=== PATIENT | female | born 1945 | race Caucasian/White ===

== ENCOUNTER 2017-05-31 20:47 | Emergency (ER) | payer MEDICARE, OTHER ==
--- NOTE | 2017-05-31 20:56 | ED Physician Documentation ---
PD HPI DYSPNEA - Stated complaint Stated Complaint: SOA/CRACKLY LUNGS - History obtained from History obtained from: Patient - History of Present Illness Timing - onset: How many weeks ago (3) Timing - duration: Weeks Timing - details: Gradual onset, Waxing and waning Pain level max: 0 Pain level now: 0 Improved by: Rest Worsened by: Exertion, Laying flat Similar symptoms before: Diagnosis (some symptoms are similar to previous episodes of asthma exacerbation, but she is not confident that all of her symptoms are c/w previous such episodes) Recently seen: Not recently seen - Additional information Additional information: c/o 3 weeks of dyspnea, cough productive of clear "fluid" (per patient), becoming worse x 1 week. Denies fever, chills, diaphoresis. Review of Systems Constitutional: denies: Fever, Chills, Sweats Nose: reports: Congestion Throat: denies: Sore throat Cardiac: reports: Reviewed and negative Respiratory: reports: Dyspnea, Cough GI: denies: Abdominal Pain, Nausea, Vomiting Musculoskeletal: denies: Extremity swelling PD PAST MEDICAL HISTORY - Past Medical History Cardiovascular: None Respiratory: Asthma Neuro: None Endocrine/Autoimmune: None GI: GERD HEENT: Glaucoma Psych: Anxiety Musculoskeletal: Osteoarthritis, Osteoporosis - Past Surgical History Past Surgical History: Yes HEENT: Tonsil/Adenoidectomy - Present Medications Home Medications: Ambulatory Orders Medication Instructions Recorded Confirmed ALPRAZolam [Xanax] 0.25 mg PO HS 04/21/13 05/31/17 Levalbuterol [Xopenex] 1.25 mg INH TID PRN 04/21/13 05/31/17 Clindamycin [Cleocin] 300 mg PO BID 05/31/17 05/31/17 PrednisoLONE [Prelone] 20 mg PO DAILY 3 Days 05/31/17 - Allergies Allergies/Adverse Reactions: Allergies Allergy/AdvReac Type Severity Reaction Status Date / Time cephalexin monohydrate * Allergy Unknown unknown Verified 05/31/17 20:56 [From Keflex] erythromycin base Allergy unknown Verified 05/31/17 20:56 [Erythromycin Base] omeprazole [From Prilosec] Allergy swelling Verified 05/31/17 20:56 omeprazole magnesium * Allergy swelling Verified 05/31/17 20:56 [From Prilosec] Penicillins Allergy unknown Verified 05/31/17 20:56 Sulfa (Sulfonamide Allergy unknown Verified 05/31/17 20:56 Antibiotics) Tetracyclines Allergy unknown Verified 05/31/17 20:56 - Social History Does the pt smoke?: No Smoking Status: Never smoker Does the pt drink ETOH?: No Does the pt have substance abuse?: No - POLST Patient has POLST: No PD ED PE NORMAL - Vitals Vital signs reviewed: Yes - General General: Alert and oriented X 3, No acute distress, Well developed/nourished - Cardiac Cardiac: RRR, No murmur, No gallop, No rub - Respiratory Respiratory: No respiratory distress, Other (decreased breath sounds bilaterally ) - Abdomen Abdomen: Soft, Non tender - Derm Derm: Normal color, Warm and dry - Extremities Extremities: No edema Results - Vitals Vitals: Vital Signs - 24 hr 05/31/17 05/31/17 05/31/17 20:52 22:57 23:29 Temperature 36.5 C 36.5 C Heart Rate 72 58 L 88 Respiratory 20 16 16 Rate Blood Pressure 150/76 H 127/82 H 121/78 O2 Saturation 93 93 95 Oxygen O2 Source Room air - EKG (time done) No standard instances Rate: Rate (enter#) (58) Rhythm: NSR [place]: Normal Intervals: Normal [place] QRS: Normal Ischemia: Normal ST segments, Q waves (V1, V2) - Labs Labs: Laboratory Tests 05/31/17 05/31/17 05/31/17 21:14 21:14 21:14 WBC 8.6 RBC 4.81 Hgb 13.8 Hct 40.8 MCV 84.9 MCH 28.7 MCHC 33.8 RDW 13.1 Plt Count 271 MPV 6.9 L Neut # 5.6 Lymph # 1.8 [place] # 0.6 Eos # 0.5 Baso # 0.1 Absolute Nucleated RBC 0.00 Nucleated RBCs 0.0 Sodium 139 Potassium 3.9 Chloride 105 Carbon Dioxide 25 Anion Gap 9.0 BUN 18 Creatinine 0.9 Estimated GFR (MDRD) 62 L Glucose 95 Calcium 9.2 Troponin I < 0.04 B-Natriuretic Peptide 05/31/17 21:14 WBC RBC Hgb Hct MCV MCH MCHC RDW Plt Count MPV Neut # Lymph # [place] # Eos # Baso # Absolute Nucleated RBC Nucleated RBCs Sodium Potassium Chloride Carbon Dioxide Anion Gap BUN Creatinine Estimated GFR (MDRD) Glucose Calcium Troponin I B-Natriuretic Peptide 48 - Rads (name of study) chest xray Radiology: Prelim report reviewed, See rad report PD MEDICAL DECISION MAKING - ED course Complexity details: reviewed old records, reviewed results, re-evaluated patient , considered differential, d/w patient ED course: Patient agrees with steroid (in ED and rx), but insists on reduced doses due to concern for side effects. Departure - Departure Disposition: Home, Self Care Clinical Impression: Dyspnea Qualifiers: Dyspnea type: unspecified Qualified Code(s): R06.00 - Dyspnea, unspecified Condition: Good Instructions: ED Reactive Airway Disease Follow-Up: Mayte Dennis MD [Primary Care Provider] - Within 3 Days Prescriptions: PrednisoLONE [Prelone] 20 mg PO DAILY 3 Days Discharge Date/Time: 05/31/17 23:30
[2017-05-31 21:41] LABS: BASOPHILS # (AUTO) 0.1 10^3/uL (0.0-0.1); EOSINOPHILS # (AUTO) 0.5 10^3/uL (0.0-0.7); EOSINOPHILS % (AUTO) 5.5 %; HCT - HEMATOCRIT 40.8 % (37.0-47.0); HGB - HEMOGLOBIN 13.8 g/dL (12.0-16.0); LYMPHOCYTES # (AUTO) 1.8 10^3/uL (1.5-3.5); LYMPHOCYTES % (AUTO) 21.2 %; MEAN CORPUSCULAR HEMOGLOBIN 28.7 pg (27.0-31.0); MEAN CORPUSCULAR HGB CONC 33.8 g/dL (32.0-36.0); MEAN CORPUSCULAR VOLUME 84.9 fL (81.0-99.0); MEAN PLATELET VOLUME 6.9 fL (7.9-10.8); MONOCYTES # (AUTO) 0.6 10^3/uL (0.0-1.0); MONOCYTES % (AUTO) 6.7 %; NEUTROPHILS # (AUTO) 5.6 10^3/uL (1.5-6.6); NEUTROPHILS % (AUTO) 65.6 %; RED BLOOD COUNT 4.81 10^6/uL (4.20-5.40); RED CELL DISTRIBUTION WIDTH 13.1 % (12.0-15.0); UNCORRECTED WHITE BLOOD COUNT 8.6 x10^3/uL; WHITE BLOOD COUNT 8.6 x10^3/uL (4.8-10.8)
[2017-05-31 21:46] LABS: CALCIUM 9.2 mg/dL (8.5-10.3); CREATININE 0.9 mg/dL (0.4-1.0); POTASSIUM 3.9 mmol/L (3.5-5.0)
--- NOTE | 2017-05-31 22:18 | XRAY Preliminary Report ---
Exam: XR Chest 2 View PA/LAT IMPRESSION: 1. Large lung volumes consistent with emphysema. [facility] SITE ID: [id number]
--- NOTE | 2017-05-31 22:21 | XRAY Report ---
EXAM: CHEST RADIOGRAPHY EXAM DATE: 05/31/2017 10:00 PM. CLINICAL HISTORY: Dyspnea. COMPARISON: 08/04/2015. TECHNIQUE: 2 views. FINDINGS: Lungs/Pleura: Large lung volumes. No alveolar consolidation or pleural effusion. No pneumothorax. Mediastinum: Heart and mediastinal contours are unremarkable. Other: None. IMPRESSION: 1. Large lung volumes consistent with emphysema. [facility] Referring Provider Line: [phone] SITE ID: [id number]
[2017-05-31] MEDS ORDERED: DEXAMETHASONE 10 MG/ML VIAL PO STA (23:09)
[2017-05-31] MEDS ORDERED: DEXAMETHASONE 10 MG/ML VIAL ONE (23:10)
[2017-05-31] MEDS ORDERED: CHERRY SYRUP 10 ML UDC PO ONE (23:10)
[2017-05-31 23:30] VITALS: BP 121/78
== END 2017-05-31 23:30 | disposition home or self-care (01) ==
LOC: ED 20:47
DX: R06.00 Dyspnea, unspecified (principal); J45.909 Unspecified asthma, uncomplicated; K21.9 Gastro-esophageal reflux disease without esophagitis; M19.90 Unspecified osteoarthritis, unspecified site
CPT/HCPCS: 36415; 71020; 80048; 83880; 84484; 85025; 93005; 99284; A9270

== ENCOUNTER 2017-06-17 20:04 | Emergency (ER) | payer MEDICARE, OTHER ==
--- NOTE | 2017-06-17 21:00 | ED Physician Documentation ---
History of Present Illness - Stated complaint Stated Complaint: L SIDE/BACK PX - Chief complaint Chief Complaint: Resp - History obtained from History obtained from: Patient, Family - History of Present Illness Timing: Chronic Pain level max: 8 Pain level now: 3 Improved by: using her nebulizer Worsened by: coughing - Additonal information Additional information: States has asthma and utilizes her nebulizer TID. Doesn't want to take prednisone 2/2 osteoporosis issues. Cough for 2 months. Clear/white sputum. States L sided chest pain, worse with cough and deep breath. Sharp 8/10. No fevers. Review of Systems Constitutional: denies: Fever, Chills Nose: denies: Rhinorrhea / runny nose, Congestion Respiratory: reports: Cough, Wheezing GI: denies: Abdominal Pain, Nausea, Vomiting, Diarrhea Skin: denies: Rash Musculoskeletal: denies: Neck pain, Back pain Neurologic: denies: Focal weakness, Numbness, Headache PD PAST MEDICAL HISTORY - Past Medical History Cardiovascular: None Respiratory: Asthma Neuro: None Endocrine/Autoimmune: None GI: GERD HEENT: Glaucoma Psych: Anxiety Musculoskeletal: Osteoarthritis, Osteoporosis - Past Surgical History Past Surgical History: Yes HEENT: Tonsil/Adenoidectomy - Present Medications Home Medications: Ambulatory Orders Medication Instructions Recorded Confirmed ALPRAZolam [Xanax] 0.25 mg PO HS 04/21/13 05/31/17 Levalbuterol [Xopenex] 1.25 mg INH TID PRN 04/21/13 05/31/17 Clindamycin [Cleocin] 300 mg PO BID 05/31/17 05/31/17 PrednisoLONE [Prelone] 20 mg PO DAILY 3 Days 05/31/17 - Allergies Allergies/Adverse Reactions: Allergies Allergy/AdvReac Type Severity Reaction Status Date / Time cephalexin monohydrate * Allergy Unknown unknown Verified 06/17/17 20:18 [From Keflex] erythromycin base Allergy unknown Verified 06/17/17 20:18 [Erythromycin Base] omeprazole [From Prilosec] Allergy swelling Verified 06/17/17 20:18 omeprazole magnesium * Allergy swelling Verified 06/17/17 20:18 [From Prilosec] Penicillins Allergy unknown Verified 06/17/17 20:18 Sulfa (Sulfonamide Allergy unknown Verified 06/17/17 20:18 Antibiotics) Tetracyclines Allergy unknown Verified 06/17/17 20:18 - Social History Does the pt smoke?: No Smoking Status: Never smoker Does the pt drink ETOH?: No Does the pt have substance abuse?: No - Immunizations Immunizations are current?: No Immunizations: TDAP >10years/unknown - POLST Patient has POLST: No PD ED PE NORMAL - Vitals Vital signs reviewed: Yes - General General: Alert and oriented X 3, Well developed/nourished - HEENT HEENT: PERRL, Moist mucous membranes - Neck Neck: Supple, no meningeal sign - Cardiac Cardiac: RRR - Respiratory Respiratory: No respiratory distress, Other (dimished BS bilaterally. TTP over the L costochondral cartilage. ) - Abdomen Abdomen: Normal bowel sounds, Soft, Non tender, Non distended - Back Back: No spinal TTP - Derm Derm: Warm and dry - Extremities Extremities: No calf tenderness / cord - Neuro Neuro: Alert and oriented X 3 - Psych Psych: Normal mood, Normal affect Results - Vitals Vitals: Vital Signs - 24 hr 06/17/17 06/17/17 06/17/17 20:13 21:42 21:45 Temperature 37.4 C 36.9 C Heart Rate 77 72 76 Respiratory 14 18 15 Rate Blood Pressure 127/76 142/69 H O2 Saturation 94 98 06/17/17 23:15 Temperature 36.8 C Heart Rate 77 Respiratory 15 Rate Blood Pressure 129/77 O2 Saturation 94 Oxygen O2 Source Room air - Rads (name of study) Chest x-ray Radiology: Prelim report reviewed, EMP read contemporaneously, See rad report ( No acute disease) PD MEDICAL DECISION MAKING - ED course Complexity details: reviewed old records, reviewed results, re-evaluated patient , considered differential, d/w patient, d/w family ED course: Patient is a 71-year-old female who presents to the emergency department with left-sided chest pain with coughing. She was given dexamethasone here as well as a Xopenex treatment. Symptoms resolved. She states that she feels much better. I recommended strongly to her that she follow-up with her property consultant and take into consideration their advice of an inhaled steroid as well as longer acting Beta agonists medications for her asthma. No fevers. No pneumonia. Patient and family counseled regarding signs and symptoms for which I believe and urgent re-evaluation would be necessary. Patient with good understanding of and agreement to plan and is comfortable going home at this time This document was made in part using voice recognition software. While efforts are made to proofread this document, sound alike and grammatical errors may occur. Symptoms are not consistent with a pulmonary embolus, pneumothorax or acute coronary syndrome Departure - Departure Disposition: 01 Home, Self Care Clinical Impression: Asthma Qualifiers: Asthma severity: unspecified severity Asthma complication type: with acute exacerbation Qualified Code(s): J45.901 - Unspecified asthma with (acute) exacerbation Condition: Good Instructions: ED Reactive Airway Disease Follow-Up: Mayte Dennis MD [Primary Care Provider] - Within 3 Days Comments: Make sure to follow up with your doctor for further evaluation of your asthma and to prescribe medications that will help you better control your symptoms. Return if you worsen. Discharge Date/Time: 06/17/17 23:22
[2017-06-17] MEDS ORDERED: DEXAMETHASONE 10 MG/ML VIAL PO STA (21:12)
[2017-06-17] MEDS ORDERED: LEVALBUTEROL 1.25 MG INH STA (21:12)
[2017-06-17] MEDS ORDERED: DEXAMETHASONE 10 MG/ML VIAL ONE (21:21)
[2017-06-17] MEDS ORDERED: CHERRY SYRUP 10 ML UDC PO ONE (21:26)
[2017-06-17] MEDS ORDERED: LEVALBUTEROL 1.25 MG INH ONE ×2 (21:35→21:42)
[2017-06-17] MEDS ORDERED: SODIUM CHLORIDE INHALATION 3 ML NEB ONE (21:42)
--- NOTE | 2017-06-17 22:58 | XRAY Preliminary Report ---
Exam: XR Ribs w/PA Chest LT IMPRESSION: Normal chest and rib radiography. [facility] SITE ID: [id number]
--- NOTE | 2017-06-17 23:00 | XRAY Report ---
EXAM: LEFT RIB RADIOGRAPHY EXAM DATE: 06/17/2017 10:31 PM. CLINICAL HISTORY: L sided rib pain with cough. COMPARISON: 05/31/2017. TECHNIQUE: 1 view of the chest and 2 views of the ribs. FINDINGS: Bones: Normal. No fracture or bone lesion. Lungs: No focal opacities. No pneumothorax. No pleural effusions. Mediastinum: Heart and mediastinal contours are unremarkable. Other: None. IMPRESSION: Normal chest and rib radiography. [facility] Referring Provider Line: [phone] SITE ID: [id number]
[2017-06-17 23:15] VITALS: BP 129/77
== END 2017-06-17 23:22 | disposition home or self-care (01) ==
LOC: ED 20:04
DX: J45.901 Unspecified asthma with (acute) exacerbation (principal); K21.9 Gastro-esophageal reflux disease without esophagitis; M19.90 Unspecified osteoarthritis, unspecified site
CPT/HCPCS: 71101; 94640; 99283; A9270

== ENCOUNTER 2017-12-27 14:16 | Outpatient (CLI) | payer MEDICARE, OTHER ==
[2017-12-27 14:43] LABS: BASOPHILS # (AUTO) 0.1 10^3/uL (0.0-0.1); BASOPHILS % (AUTO) 0.8 %; EOSINOPHILS # (AUTO) 0.8 10^3/uL (0.0-0.7); EOSINOPHILS % (AUTO) 10.4 %; HGB - HEMOGLOBIN 14.3 g/dL (12.0-16.0); LYMPHOCYTES # (AUTO) 2.2 10^3/uL (1.5-3.5); LYMPHOCYTES % (AUTO) 29.1 %; MEAN CORPUSCULAR HGB CONC 34.1 g/dL (32.0-36.0); MEAN PLATELET VOLUME 6.2 fL (7.9-10.8); MONOCYTES # (AUTO) 0.7 10^3/uL (0.0-1.0); MONOCYTES % (AUTO) 8.8 %; NEUTROPHILS # (AUTO) 3.8 10^3/uL (1.5-6.6); NEUTROPHILS % (AUTO) 50.9 %; PLT - PLATELET COUNT 230 10^3/uL (130-450); RED BLOOD COUNT 4.93 10^6/uL (4.20-5.40); RED CELL DISTRIBUTION WIDTH 13.1 % (12.0-15.0); WHITE BLOOD COUNT 7.5 x10^3/uL (4.8-10.8)
[2017-12-27 15:49] LABS: ALBUMIN 4.1 g/dL (3.2-5.5); ALBUMIN/GLOBULIN RATIO 1.6 (1.0-2.2); BILIRUBIN,TOTAL 0.7 mg/dL (0.2-1.0); CALCIUM 9.5 mg/dL (8.5-10.3); CREATININE 0.9 mg/dL (0.4-1.0); TOTAL PROTEIN 6.7 g/dL (6.7-8.2)
== END 2017-12-27 14:17 | disposition home or self-care (01) ==
LOC: LAB 14:16
PROVIDERS: ATTEND Family Medicine
DX: L29.9 Pruritus, unspecified (principal)
CPT/HCPCS: 36415; 80053; 85025

== ENCOUNTER 2018-01-27 10:28 | Emergency (ER) | payer MEDICARE, OTHER ==
[2018-01-27] MEDS ORDERED: VANCOMYCIN INJ 1 GM in SODIUM CHLORIDE 0.9% 250 ML IV STA (11:49)
[2018-01-27 12:13] LABS: BASOPHILS % (AUTO) 0.6 %; HGB - HEMOGLOBIN 14.5 g/dL (12.0-16.0); LYMPHOCYTES % (AUTO) 17.9 %; MEAN CORPUSCULAR HEMOGLOBIN 28.6 pg (27.0-31.0); MEAN CORPUSCULAR HGB CONC 33.5 g/dL (32.0-36.0); MEAN CORPUSCULAR VOLUME 85.6 fL (81.0-99.0); MEAN PLATELET VOLUME 6.4 fL (7.9-10.8); MONOCYTES % (AUTO) 6.2 %; NEUTROPHILS % (AUTO) 56.3 %; PLT - PLATELET COUNT 255 10^3/uL (130-450); RED BLOOD COUNT 5.06 10^6/uL (4.20-5.40); RED CELL DISTRIBUTION WIDTH 13.5 % (12.0-15.0); WHITE BLOOD COUNT 9.7 x10^3/uL (4.8-10.8)
[2018-01-27 12:15] LABS: ABNORMAL LYMPHS % (MANUAL) 0 %; BAND NEUTROPHILS % (MANUAL) 0 %
[2018-01-27 12:22] LABS: CALCIUM 9.5 mg/dL (8.5-10.3); CREATININE 0.9 mg/dL (0.4-1.0)
--- NOTE | 2018-01-27 12:29 | ED Physician Documentation ---
History of Present Illness - Stated complaint Stated Complaint: LEFT ARM SWOLLEN - Chief complaint Chief Complaint: Ext Problem - Additonal information Additional information: hx from pt has developed a L arm cellutlitis cause unknown but started after a blod draw was seen in another ED, given IV clinda, dc on oral clinda, got worse, admitted for IV vanco, also had sono showing no abscess, wanted to leave because she was not getting good sleep while admitted, dc on linezolid but did not take because the paperwork that came with the med fromthe pharmacy concerned her infection not getting better last ab was vanco at noon yesterday would like more IV ab but does not want to be admitte allergic to penciliin (resp arrest), keflex and sulfa and emycin (hives Review of Systems Constitutional: denies: Fever Cardiac: denies: Chest pain / pressure Respiratory: denies: Cough GI: denies: Abdominal Pain Skin: reports: Rash Endocrine: denies: Easy bruising / bleeding Immunocompromised: denies: Immunocompromised PD PAST MEDICAL HISTORY - Past Medical History Past Medical History: Yes Cardiovascular: None Respiratory: Asthma Neuro: None Endocrine/Autoimmune: None GI: GERD HEENT: Glaucoma Psych: Anxiety Musculoskeletal: Osteoarthritis, Osteoporosis - Past Surgical History Past Surgical History: Yes HEENT: Tonsil/Adenoidectomy - Present Medications Home Medications: Ambulatory Orders Medication Instructions Recorded Confirmed ALPRAZolam [Xanax] 0.25 mg PO HS 04/21/13 05/31/17 Levalbuterol [Xopenex] 1.25 mg INH TID PRN 04/21/13 05/31/17 - Allergies Allergies/Adverse Reactions: Allergies Allergy/AdvReac Type Severity Reaction Status Date / Time cephalexin monohydrate * Allergy Unknown unknown Verified 01/27/18 10:44 [From Keflex] erythromycin base Allergy unknown Verified 06/17/17 20:18 [Erythromycin Base] omeprazole [From Prilosec] Allergy swelling Verified 06/17/17 20:18 omeprazole magnesium * Allergy swelling Verified 06/17/17 20:18 [From Prilosec] Penicillins Allergy unknown Verified 06/17/17 20:18 Sulfa (Sulfonamide Allergy unknown Verified 06/17/17 20:18 Antibiotics) Tetracyclines Allergy unknown Verified 06/17/17 20:18 - Social History Does the pt smoke?: No Smoking Status: Never smoker Does the pt drink ETOH?: No Does the pt have substance abuse?: No - Immunizations Immunizations are current?: No Immunizations: TDAP >10years/unknown - POLST Patient has POLST: No PD ED PE NORMAL - Vitals Vital signs reviewed: Yes - General General: Alert and oriented X 3 - Cardiac Cardiac: RRR, No murmur - Respiratory Respiratory: No respiratory distress, Clear bilaterally - Derm Derm: Other (diffuse erythema centered over L AC region extending nearly up to shoulder with armth and tenderness and some swelling, no necrosis, bullae or crepitus) - Extremities Extremities: Other (see serm exam, MSV intact) Results - Vitals Vitals: Vital Signs - 24 hr 01/27/18 10:41 Temperature 36.8 C Heart Rate 83 Respiratory 16 Rate Blood Pressure 156/111 H O2 Saturation 97 Oxygen O2 Source Room air - Labs Labs: Laboratory Tests 01/27/18 01/27/18 12:05 12:05 WBC 9.7 RBC 5.06 Hgb 14.5 Hct 43.3 MCV 85.6 MCH 28.6 MCHC 33.5 RDW 13.5 Plt Count 255 MPV 6.4 L Neut # Not Reportable Lymph # Not Reportable [place] # Not Reportable Eos # Not Reportable Baso # Not Reportable Absolute Nucleated RBC Not Reportable Total Counted 100 Band Neuts % (Manual) 0 Abnorm Lymph % (Manual) 0 Nucleated RBC % Not Reportable Neutrophils # (Manual) 5.6 Lymphocytes # (Manual) 2.2 Monocytes # (Manual) 0.3 Eosinophils # (Manual) 1.6 H Basophils # (Manual) 0.0 Differential Comment MANUAL DIFFERENTIAL Platelet Estimate NORMAL (130-450,000) Platelet Morphology NORMAL APPEARANCE RBC Morph Micro Appear NORMAL APPEARANCE Sodium 137 Potassium 3.9 Chloride 104 Carbon Dioxide 24 Anion Gap 9.0 BUN 18 Creatinine 0.9 Estimated GFR (MDRD) 62 L Glucose 92 Calcium 9.5 PD MEDICAL DECISION MAKING - ED course ED course: care management advises pt cannot have IV vanco at home because she has medicare but can go to [facility] so spoke to Dr Alison COOK and he will call in vanco orders to [facility] advised of the lab results Departure - Departure Disposition: 01 Home, Self Care Clinical Impression: Cellulitis Qualifiers: Site of cellulitis: extremity Site of cellulitis of extremity: upper extremity Laterality: left Qualified Code(s): L03.114 - Cellulitis of left upper limb Condition: Good Instructions: ED Infec Skin Cellulitis Follow-Up: Nir Frausto MD [Primary Care Provider] - Comments: According to care management, your insurance does not cover home antibiotics. But you can get daily IV antibiotics at our [facility] clinic and Dr Rosas has sent orders in for that. Please go over to the clinic now to arrange the timing of your infusions. Return to the ER if worse and please get your blood pressure rechecked when you are feeling better
[2018-01-27 12:32] LABS: EOSINOPHILS # (MANUAL) 1.6 10^3/uL (0-0.7); LYMPHOCYTES # (MANUAL) 2.2 10^3/uL (1.5-3.5); LYMPHOCYTES % (MANUAL) 23 %; MONOCYTES # (MANUAL) 0.3 10^3/uL (0.0-1.0); NEUTROPHILS # (MANUAL) 5.6 10^3/uL (1.5-6.6); NEUTROPHILS % (MANUAL) 58 %; PLATELET ESTIMATE, MANUAL NORMAL (130-450,000) (NORMAL); PLATELET MORPHOLOGY NORMAL APPEARANCE (NORMAL); RBC MORPHOLOGY (MULTIPLE) NORMAL APPEARANCE (NORMAL)
[2018-01-27 12:33] LABS: DIFFERENTIAL COMMENT MANUAL DIFFERENTIAL
[2018-01-27 13:53] VITALS: BP 125/49
== END 2018-01-27 16:32 | disposition home or self-care (01) ==
LOC: ED 10:28
DX: L03.114 Cellulitis of left upper limb (principal)
CPT/HCPCS: 36415; 80048; 85025; 87040; 99283; J3370; 83605

== ENCOUNTER 2018-01-28 15:53 | Emergency (ER) | payer MEDICARE, OTHER ==
--- NOTE | 2018-01-28 16:55 | ED Physician Documentation ---
History of Present Illness - Stated complaint Stated Complaint: L ARM REDNESS/SWOLLEN - Chief complaint Chief Complaint: Ext Problem - Additonal information Additional information: see my note from yesterday 72 f developed L arm cellulitis reportedly after a lab draw seen and txed with a dose of IV clinda then dc on PO clinda got worse was admitted for IV vanco left prior to completion of tx because she was not able to sleep with all the VS and interruption in a hospital was given rx for zyvox to take when she left but has not taken it because she is afraid if the side effects then came and saw me yesterday for worsening infection - did not want to be admitted, feared the zyvox effects, care management advised that pt could not get home ab infusions 2/2 insurance, so arrnaged for pt to get a PICC placed in the ER and then go to the [facility] for daily IV ab ordered by her PMD Dr Rosas - but pt did not want to have the PICC placed so that plan fell through - eventually rhe pt was unabel to decide what plan to pursue (admit vs MAC/PICC vs PO zyvox) so she just left and did not take any more ab returns today and is worse no fever - but inc redness she states she had a rash to her face this AM which she attributed to the vanco - better now Review of Systems Constitutional: denies: Fever Skin: reports: Rash Psychiatric: reports: Anxiety Immunocompromised: denies: Immunocompromised PD PAST MEDICAL HISTORY - Past Medical History Cardiovascular: None Respiratory: Asthma Neuro: None Endocrine/Autoimmune: None GI: GERD HEENT: Glaucoma Psych: Anxiety Musculoskeletal: Osteoarthritis, Osteoporosis - Past Surgical History Past Surgical History: Yes HEENT: Tonsil/Adenoidectomy - Present Medications Home Medications: Ambulatory Orders Medication Instructions Recorded Confirmed ALPRAZolam [Xanax] 0.25 mg PO HS 04/21/13 05/31/17 Levalbuterol [Xopenex] 1.25 mg INH TID PRN 04/21/13 05/31/17 Saccharomyces Boulardii [Florastor] 500 mg PO BID #40 capsule 01/27/18 - Allergies Allergies/Adverse Reactions: Allergies Allergy/AdvReac Type Severity Reaction Status Date / Time cephalexin monohydrate * Allergy Unknown unknown Verified 01/28/18 16:06 [From Keflex] erythromycin base Allergy unknown Verified 01/28/18 16:06 [Erythromycin Base] omeprazole [From Prilosec] Allergy swelling Verified 01/28/18 16:06 omeprazole magnesium * Allergy swelling Verified 01/28/18 16:06 [From Prilosec] Penicillins Allergy unknown Verified 01/28/18 16:06 Sulfa (Sulfonamide Allergy unknown Verified 01/28/18 16:06 Antibiotics) Tetracyclines Allergy unknown Verified 01/28/18 16:06 - Social History Does the pt smoke?: No Smoking Status: Never smoker Does the pt drink ETOH?: No Does the pt have substance abuse?: No - Immunizations Immunizations are current?: No Immunizations: TDAP >10years/unknown - POLST Patient has POLST: No PD ED PE NORMAL - Vitals Vital signs reviewed: Yes - HEENT HEENT: Other (no oral swelling or facial erythema at this time) - Cardiac Cardiac: RRR - Respiratory Respiratory: No respiratory distress, Clear bilaterally - Derm Derm: Other (increased size of cellulitis, no crepitus necrosis bullae, MSV intact) - Neuro Neuro: Alert and oriented X 3 - Psych Psych: Other (very anxious and indecisive) Results - Vitals Vitals: Vital Signs - 24 hr 01/28/18 01/28/18 16:01 17:14 Temperature 37.0 C Heart Rate 62 74 Respiratory 18 18 Rate Blood Pressure 107/62 133/80 H O2 Saturation 95 100 Oxygen O2 Source Room air - Labs Labs: Laboratory Tests 01/28/18 01/28/18 17:55 17:55 WBC 7.6 RBC 4.97 Hgb 14.0 Hct 42.9 MCV 86.4 MCH 28.2 MCHC 32.6 RDW 13.1 Plt Count 235 MPV 6.4 L Neut # Not Reportable Lymph # Not Reportable [place] # Not Reportable Eos # Not Reportable Baso # Not Reportable Absolute Nucleated RBC Not Reportable Total Counted 100 Band Neuts % (Manual) 0 Reactive Lymphs % (Man) 3 Abnorm Lymph % (Manual) 0 Nucleated RBC % Not Reportable Neutrophils # (Manual) 4.6 Lymphocytes # (Manual) 1.4 L Monocytes # (Manual) 0.3 Eosinophils # (Manual) 1.3 H Basophils # (Manual) 0.0 Differential Comment MANUAL DIFFERENTIAL Platelet Estimate NORMAL (130-450,000) Platelet Morphology NORMAL APPEARANCE RBC Morph Micro Appear NORMAL APPEARANCE Sodium 140 Potassium 3.7 Chloride 106 Carbon Dioxide 25 Anion Gap 9.0 BUN 20 Creatinine 0.8 Estimated GFR (MDRD) 71 L Glucose 112 H Calcium 9.3 PD MEDICAL DECISION MAKING - ED course ED course: again presented 3 choices 1) admit 2) PICC and IV ab at [facility] 3) PO zyvox as previously prescribed pt agreed to be admitted if she could have her own room and not be awakened for vitals hospitalist saw pt and wrote orders then she changed her mind again and wants to leave AMA she says she will take the zyvox after all admit cancelled I spoke to pt she signed out AMA Departure - Departure Disposition: Against Medical Advice Clinical Impression: Cellulitis Qualifiers: Site of cellulitis: extremity Site of cellulitis of extremity: upper extremity Laterality: left Qualified Code(s): L03.114 - Cellulitis of left upper limb Condition: Good Instructions: ED Infec Skin Cellulitis Follow-Up: Nir Frausto MD [Primary Care Provider] - (Tuesday for a recheck) Comments: Because you have not been receiving adequate antibiotics, your arm infection is getting worse. As we discussed yesterday you have 3 option 1) take the zyvox / linezolid that you were prescribed when you left the other hospital 2) be admitted for IV antibiotics 3) have the PICC line placed and get daily antibiotics at the [facility] clinic at [facility] (this can now not be set up until Tuesday) Today we had made arrangements for you to be admitted to the hospital, to have your own room, to not be interrupted at night for vitals and to provide the IV antibiotics you need. But you have chosen to leave again This decision may result in worsening of the arm infection, progression to a blood stream infection, permanent injury or of the infection gets severe enough Please take the zyvox. Please take the probiotic. Please see your PMD for a recheck Tuesday Discharge Date/Time: 01/28/18 19:28
[2018-01-28] MEDS ORDERED: LORazepam 0.5 MG TABLET PO STA (17:31)
[2018-01-28] MEDS ORDERED: ACETAMINOPHEN 325 MG TABLET PO PRN (17:51)
[2018-01-28] MEDS ORDERED: SODIUM CHLORIDE FLUSH 0.9% 10 ML SYRINGE IVP PRN (17:51)
[2018-01-28] MEDS ORDERED: ONDANSETRON 4 MG/2 ML VIAL IVP PRN (17:51)
[2018-01-28] MEDS ORDERED: ZOLPIDEM 5 MG TABLET PO PRN (17:51)
[2018-01-28] MEDS ORDERED: LORazepam 0.5 MG TABLET PO PRN (17:55)
[2018-01-28] MEDS ORDERED: LEVALBUTEROL 1.25 MG INH PRN (17:56)
[2018-01-28] MEDS ORDERED: SODIUM CHLORIDE 0.9% 1,000 ML IV SCH (18:00)
[2018-01-28] MEDS ORDERED: VANCOMYCIN PER PHARMACY 1.5 GM in SODIUM CHLORIDE 0.9% 250 ML IV SCH (18:00)
--- NOTE | 2018-01-28 18:01 | HISTORY & PHYSICAL EXAMINATION ---
Chief Complaint - Chief Complaint Chief Complaint: arm infection History - Past Medical History Cardiovascular: reports: None Respiratory: reports: Asthma Neuro: reports: None Endocrine/Autoimmune: reports: None GI: reports: GERD HEENT: reports: Glaucoma Psych: reports: Anxiety Musculoskeletal: reports: Osteoarthritis, Osteoporosis MRSA Hx?: No - Past Surgical History HEENT: reports: Tonsil/Adenoidectomy - POLST Patient has POLST: No Meds/Allgy - Home Medications Home Medications: Ambulatory Orders Medication Instructions Recorded Confirmed ALPRAZolam [Xanax] 0.25 mg PO HS 04/21/13 05/31/17 Levalbuterol [Xopenex] 1.25 mg INH TID PRN 04/21/13 05/31/17 Saccharomyces Boulardii [Florastor] 500 mg PO BID #40 capsule 01/27/18 - Allergies Allergies/Adverse Reactions: Allergies Allergy/AdvReac Type Severity Reaction Status Date / Time cephalexin monohydrate * Allergy Unknown unknown Verified 01/28/18 16:06 [From Keflex] erythromycin base Allergy unknown Verified 01/28/18 16:06 [Erythromycin Base] omeprazole [From Prilosec] Allergy swelling Verified 01/28/18 16:06 omeprazole magnesium * Allergy swelling Verified 01/28/18 16:06 [From Prilosec] Penicillins Allergy unknown Verified 01/28/18 16:06 Sulfa (Sulfonamide Allergy unknown Verified 01/28/18 16:06 Antibiotics) Tetracyclines Allergy unknown Verified 01/28/18 16:06 Exam - Vital Signs Vital Signs: Vital Signs x48h Temp Pulse Resp BP Pulse Ox 01/28/18 16:01 37.0 C 62 18 107/62 95
[2018-01-28 18:09] LABS: BASOPHILS % (AUTO) 0.6 %; LYMPHOCYTES % (AUTO) 18.5 %; MEAN CORPUSCULAR HEMOGLOBIN 28.2 pg (27.0-31.0); MEAN CORPUSCULAR HGB CONC 32.6 g/dL (32.0-36.0); MEAN CORPUSCULAR VOLUME 86.4 fL (81.0-99.0); MEAN PLATELET VOLUME 6.4 fL (7.9-10.8); MONOCYTES % (AUTO) 5.2 %; NEUTROPHILS % (AUTO) 61.7 %; PLT - PLATELET COUNT 235 10^3/uL (130-450); RED BLOOD COUNT 4.97 10^6/uL (4.20-5.40); RED CELL DISTRIBUTION WIDTH 13.1 % (12.0-15.0); WHITE BLOOD COUNT 7.6 x10^3/uL (4.8-10.8)
[2018-01-28 18:11] LABS: ABNORMAL LYMPHS % (MANUAL) 0 %; BAND NEUTROPHILS % (MANUAL) 0 %
[2018-01-28 18:13] LABS: CALCIUM 9.3 mg/dL (8.5-10.3); CREATININE 0.8 mg/dL (0.4-1.0)
--- NOTE | 2018-01-28 19:00 | MISCELLANEOUS PROVIDER NOTE ---
Miscellaneous Provider Note - - Note: My supervisor coal handling Dr. Dejesus told me to admit Ms Holland as in-pt for cellulitis. I went to ER to see pt around 1800. Pt is undetermined if she should stay in the hospital or go to home to take her medications, Linezolid, prescribed by other medical provider. Pt asked me let she had another 10 minutes to think. I let pt do that. I came back ER around 1830 to see pt again. I clearly explained to pt the risks of going home without medical intervention in the hospital. Pt clearly told me she want to go to home and take the medication, Linezolid, prescribed by other medical provider. Pt is alert and oriented, and has the capacity to make her own decision. I also advised pt, should symptoms return or worsen, may present ER or call 911 for help, she is welcomed by our service. I reported this situation to ER provider Dr.Helene Youngblood. I also reported this situation to my supervisor coal handling Dr. Dejesus.
[2018-01-28 19:23] VITALS: BP 133/80
[2018-01-28 19:24] LABS: EOSINOPHILS # (MANUAL) 1.3 10^3/uL (0-0.7); LYMPHOCYTES # (MANUAL) 1.4 10^3/uL (1.5-3.5); LYMPHOCYTES % (MANUAL) 15 %; MONOCYTES # (MANUAL) 0.3 10^3/uL (0.0-1.0); NEUTROPHILS # (MANUAL) 4.6 10^3/uL (1.5-6.6); NEUTROPHILS % (MANUAL) 61 %
[2018-01-28 19:26] LABS: DIFFERENTIAL COMMENT MANUAL DIFFERENTIAL; PLATELET ESTIMATE, MANUAL NORMAL (130-450,000) (NORMAL); PLATELET MORPHOLOGY NORMAL APPEARANCE (NORMAL); RBC MORPHOLOGY (MULTIPLE) NORMAL APPEARANCE (NORMAL)
[2018-01-29] MEDS ORDERED: SODIUM CHLORIDE FLUSH 0.9% 10 ML SYRINGE IVP SCH (01:00)
[2018-01-29] MEDS ORDERED: POLYETHYLENE GLYCOL 3350 17 GM PACKET PO SCH (09:00)
[2018-01-29] MEDS ORDERED: FAMOTIDINE 20 MG TABLET PO SCH (09:00)
[2018-01-29] MEDS ORDERED: ENOXAPARIN 40 MG/0.4 ML SYRINGE SUBQ SCH (09:00)
== END 2018-01-28 19:28 | disposition left against medical advice (07) ==
LOC: ED 15:53
DX: L03.114 Cellulitis of left upper limb (principal); Z53.20 Procedure and treatment not carried out because of patient's decision for unspecified reasons
CPT/HCPCS: 36415; 80048; 85025; 99283